=== PATIENT | male | born 1955 | race Caucasian/White ===

== ENCOUNTER → 2020-09-14 09:58 | Outpatient (CLI) | payer MEDICARE, SELFPAY ==
--- NOTE | 2020-09-14 10:06 | XR_ITS ---
PROCEDURE: XR KNEE RT 3V CLINICAL INDICATION: JANELLE KNEE PAIN COMPARISON: No exams were available for comparison FINDINGS: No fracture or dislocation. No lytic or blastic change. There is normal mineralization. There are tricompartmental osteoarthritic changes which are mild in nature. Small enthesophyte is present at the superior and inferior aspect of the patella. Other findings:None. IMPRESSION: Osteoarthritic changes Dictated by: Tesfaye Worley MD 09/14/2020 15:17 Tesfaye Worley MD in [place] 09/14/2020 15:17
--- NOTE | 2020-09-14 10:06 | XR_ITS ---
PROCEDURE: XR KNEE LT 3V CLINICAL INDICATION: JANELLE KNEE PAIN COMPARISON: No exams were available for comparison FINDINGS: No fracture or dislocation. No lytic or blastic change. There is normal mineralization. There are mild osteoarthritic changes involving all 3 compartments greatest at the medial compartment and patellofemoral joint. Patellar enthesophytes are noted. Other findings:None. IMPRESSION: Osteoarthritis Dictated by: Tesfaye Worley MD 09/14/2020 15:18 Tesfaye Worley MD in [place] 09/14/2020 15:18
--- NOTE | 2020-09-14 10:07 | XR_ITS ---
PROCEDURE: XR HAND RT MIN 3V CLINICAL INDICATION: RT HAND PAIN COMPARISON: No exams were available for comparison FINDINGS: No fracture or dislocation. No lytic or blastic change. There is normal mineralization. Multi joint osteoarthritic changes are present including the interphalangeal joint of the thumb, metacarpophalangeal joints of digits 2 and 3, the PIP digits 2 and 5, the DIP digits 234 in 5. Prominent osteophyte formation is present at the DIP of 2nd and 3rd digits. Subchondral cystic changes are present at the head of the 3rd metacarpal and at the proximal aspect of the proximal phalanx of the 2nd digit. Other findings:None. IMPRESSION: Osteoarthritis Dictated by: Tesfaye Worley MD 09/14/2020 15:14 Tesfaye Worley MD in [place] 09/14/2020 15:14
--- NOTE | 2020-09-14 10:07 | XR_ITS ---
PROCEDURE: XR HAND LT MIN 3V CLINICAL INDICATION: LT HAND PAIN COMPARISON: No exams were available for comparison FINDINGS: Multilevel osteoarthritic changes are present at the metacarpal phalangeal joint of digits 1 and 3, interphalangeal joint of the thumb, PIP joint of the 3rd 4th and 5th digits, the DIP joints of digits 234 and 5. Subchondral cystic changes are present involving the head of the 3rd metacarpal. Prominent osteophytes are present at the DIP of the 2nd digit. No acute fracture or dislocation evident. No lytic or blastic change. IMPRESSION: Osteoarthritis as described above. Dictated by: Tesfaye Worley MD 09/14/2020 15:16 Tesfaye Worley MD in [place] 09/14/2020 15:16
== END ==
PROVIDERS: PCP Family Medicine; Visit Provider Family Medicine
DX: M79.642 Pain in left hand (principal); M79.641 Pain in right hand; M25.561 Pain in right knee; M25.562 Pain in left knee
CPT/HCPCS: 73130; 73562

== ENCOUNTER → 2021-04-22 08:36 | Outpatient (CLI) | payer MEDICARE, SELFPAY ==
--- NOTE | 2021-04-22 08:44 | XR_ITS ---
PROCEDURE: XR FOOT WT BEARING LT 3V CLINICAL INDICATION: Pain COMPARISON: No exams were available for comparison FINDINGS: There are moderate osteoarthritic changes at the 1st MTP joint with bony hypertrophy. Osteoarthritis also noted at the talonavicular and navicular cuneiform joint as well as the tarsal metatarsal junction. Borderline pes planus. Osteoarthritis at the ankle. Small calcaneal spur and Achilles enthesophyte. IMPRESSION: Osteoarthritic changes with borderline pes planus Dictated by: Tesfaye Worley MD 04/22/2021 10:23 Tesfaye Worley MD in [place] 04/22/2021 10:23
--- NOTE | 2021-04-22 08:44 | XR_ITS ---
PROCEDURE: XR FOOT WT BEARING RT 3V CLINICAL INDICATION: pain COMPARISON: No exams were available for comparison FINDINGS: No fracture or dislocation. No lytic or blastic change. There is normal mineralization. Osteoarthritic changes are present at the 1st MTP, tarsal metatarsal junction, and navicular cuneiform region. There is borderline pes planus. Other findings:Prominent calcaneal spur and small Achilles enthesophyte noted. IMPRESSION: Osteoarthritic changes as described above Dictated by: Tesfaye Worley MD 04/22/2021 10:02 Tesfaye Worley MD in [place] 04/22/2021 10:02
== END ==
PROVIDERS: PCP Family Medicine; Visit Provider Nurse Practitioner
DX: M79.672 Pain in left foot (principal); M79.671 Pain in right foot
CPT/HCPCS: 73630

== ENCOUNTER → 2021-11-12 13:46 | Outpatient (CLI) | payer MEDICARE, SELFPAY ==
--- NOTE | 2021-11-12 13:50 | XR_ITS ---
FINAL REPORT CLINICAL HISTORY: knee pain FINDINGS: 4 views of the right knee were obtained. There is no acute fracture or dislocation. There is mild to moderate narrowing of the medial compartment joint space. There are small osteophytes along the undersurface of the patella. A small joint effusion is present. IMPRESSION: [id number]-pm-hsgnylna osteoarthritis. Reviewed, Interpreted and Dictated by Jesús Clarke MD Transcribed by Tanner Cueto Authenticated by Jesús Clarke MD on 11/12/2021 02:50:58 PM [facility]
--- NOTE | 2021-11-12 13:50 | XR_ITS ---
FINAL REPORT CLINICAL HISTORY: knee pain FINDINGS: 4 views of the left knee were obtained. There is no acute fracture or dislocation. There is moderate narrowing of the medial compartment joint space with subchondral sclerosis. There is varus angulation. There are osteophytes along the undersurface of the patella. A small joint effusion is present. IMPRESSION: Moderate osteoarthritis. Reviewed, Interpreted and Dictated by Jesús Clarke MD Transcribed by Tanner Cueto Authenticated by Jesús Clarke MD on 11/12/2021 02:51:12 PM [facility]
== END ==
PROVIDERS: PCP Family Medicine; Visit Provider Orthopaedic Surgery
DX: M25.561 Pain in right knee (principal); M25.562 Pain in left knee
CPT/HCPCS: 73564

== ENCOUNTER 2021-11-12 15:02 | Outpatient (RCR) | payer MEDICARE, SELFPAY | END 2021-11-12 16:00 | disposition home or self-care (01) | LOC: PT 15:02 | PROVIDERS: Visit Provider Orthopaedic Surgery | DX: M17.0 Bilateral primary osteoarthritis of knee (principal) | CPT/HCPCS: 97760 ==

== ENCOUNTER 2022-08-08 11:50 | Emergency (ER) | payer MEDICARE, SELFPAY ==
[2022-08-08 11:51] VITALS: BP 124/85; PULSE 87; RESP 19; TEMP 37; O2SAT 98; BMI 359.0
--- NOTE | 2022-08-08 13:30 | EXP.UTC ---
Discharge Plan Disposition Patient Disposition: Home, Self-Care Condition: Good Prescriptions Prescriptions: New azithromycin [Zithromax Z-Toney] 250 mg tablet See Rx Instructions .ROUTE .COMPLEX 5 Days Qty: 6 0RF Rx Instructions: For 250 mg dose pack: take 500 mg today (day 1), then 250 mg for 4 days (days 2-5) benzonatate 100 mg capsule 100 mg PO TID PRN (Reason: cough) Qty: 30 0RF methylprednisolone [Medrol (Toney)] 4 mg tablets,dose pack See Rx Instructions .Route .COMPLEX 6 Days Qty: 21 0RF Rx Instructions: taper pack; No Action tramadol 50 mg tablet 50 mg PO DAILY pravastatin 20 mg tablet 20 mg PO DAILY celecoxib 50 mg capsule 50 mg PO BID lisinopril 20 mg tablet 20 mg PO DAILY Referrals Follow up/Referrals: Gareth Garay MD [Primary Care Provider] - See instructions Activity Restrictions/Add. Instructions Additional Instructions/Restrictions: *Monitor Temp, Over the counter Motrin or Tylenol as directed/as needed Tylenol every 4 hours and Motrin every 6 hours (as long as your family doctor has told you that you can take it) for fever or pain. and straight to ER if unable to lower temp less than 101.0 after medication given *Warm salt water gargles may help to soothe the throat *Throat Lozenges? *Warm fluids like tea with honey may help to soothe the throat? *Sleep elevated *Humidifier/Vaporizer Your throat swab was sent for culture. Those results are typically sent to your primary care. Be sure to follow up in 2-3 days with your family doctor/primary care physician if no improvement so they can review those result and treat if necessary. If you don?t have a primary care doctor, I recommend you get one but in the mean time, you will have to return to a walk in clinic Follow up IMMEDIATELY for new or worsening symptoms or no Noticeable improvement over the next 48-72 hours. 911 for difficulty breathing or swallowing You were tested for today for COVID19 your test result should be back in the next 24-48 hours, you may check your results on the [facility] Clinical Impressions Clinical Impression: Sinusitis, Bronchitis Instructions Patient Instructions: DI for Sinusitis, Sinusitis, Acute Bronchitis Discharge ED Provider: Nay Rai [facility] [place] [facility] [place] General Stated complaint: congestion sore throat Time Seen by Provider: 08/08/22 13:30 History of Present Illness Provider Complaint: Patient states that he has been having sore throat, sinus congestion and drainage in the back of his throat and burning like in his chest when he would cough States that today he was still feeling bad so he came in to get checked out Related Data Home Medications Medication Instructions Recorded Confirmed celecoxib 50 mg capsule 50 mg PO BID 04/22/21 06/22/22 lisinopril 20 mg tablet 20 mg PO DAILY 04/22/21 06/22/22 pravastatin 20 mg tablet 20 mg PO DAILY 04/22/21 06/22/22 tramadol 50 mg tablet 50 mg PO DAILY 04/22/21 06/22/22 Previous Rx's Medication Instructions Recorded azithromycin 250 mg tablet See Rx Instructions PO .COMPLEX 5 08/08/22 (Zithromax Z-Toney) days #6 tabs benzonatate 100 mg capsule 100 mg PO TID PRN cough #30 caps 08/08/22 methylprednisolone 4 mg tablets in See Rx Instructions .Route 08/08/22 a dose pack (Medrol (Toney)) .COMPLEX 6 days #21 tabs Allergies Allergy/AdvReac Type Severity Reaction Status Date / Time No Known Drug Allergies Allergy Verified 06/22/22 14:33 NO KNOWN ALLERGIES Allergy Uncoded 06/22/22 14:33 [facility] Medical History Arthritis Hyperlipidemia Hypertension Surgical History H/O rotator cuff surgery History of colonoscopy Family History Other Cancer Heart attack Stroke Social History (Reviewed
[2022-08-08 13:41] LABS: UTC Influenza A Antigen Negative (Negative); UTC Influenza B Antigen Negative (Negative); UTC Strep Screen (Rapid) Negative (Negative)
[2022-08-08 14:06] VITALS: BP 124/85; PULSE 87; RESP 19; TEMP 37; O2SAT 98
== END 2022-08-08 14:06 | disposition home or self-care (01) ==
PROVIDERS: Emergency Provider Nurse Practitioner; PCP Family Medicine
DX: U07.1 COVID-19 (principal); I10 Essential (primary) hypertension; R05.9 Cough, unspecified; J32.9 Chronic sinusitis, unspecified; Z79.1 Long term (current) use of non-steroidal anti-inflammatories (NSAID); Z79.899 Other long term (current) drug therapy; Z82.49 Family history of ischemic heart disease and other diseases of the circulatory system; Z80.9 Family history of malignant neoplasm, unspecified
CPT/HCPCS: 87804; 87880; C9803; U0003; U0005

== ENCOUNTER → 2023-03-22 09:41 | Outpatient (CLI) | payer MEDICARE, SELFPAY ==
--- NOTE | 2023-03-22 09:45 | XR_ITS ---
FINAL REPORT CLINICAL HISTORY: rt knee pain COMPARISON: 11/12/2021 FINDINGS: RIGHT KNEE 3 views of the right knee were obtained. There is no acute fracture or dislocation. There has been further progression of severe joint space narrowing within the medial compartment with new subchondral sclerosis. Mild degenerative changes of the lateral compartment and patellofemoral joint. Soft tissues are unremarkable. IMPRESSION: Worsening of severe degenerative change medial compartment. Reviewed, Interpreted and Dictated by Abdelrahman Ogden MD Transcribed by Rayna Mason Authenticated and [facility]
== END ==
PROVIDERS: PCP Family Medicine; Visit Provider Orthopaedic Surgery
DX: M17.11 Unilateral primary osteoarthritis, right knee (principal)
CPT/HCPCS: 73562

== ENCOUNTER → 2023-03-22 10:56 | Outpatient (CLI) | payer MEDICARE, SELFPAY ==
--- NOTE | 2023-03-22 11:06 | ECG_ITS ---
APPROVED REPORT Exam: Resting ECG HR:91 bpm ECG Measurements Heart Rate 91 AXES SD 190 P 36 QRSd 95 QRS -6 QT 331 T 3 QTc 380 Conclusion SINUS RHYTHM NORMAL ECG UNCONFIRMED REPORT Electronically signed by : Nicanor Atkins MD 03/23/2023 09:27:43
--- NOTE | 2023-03-22 11:10 | XR_ITS ---
FINAL REPORT CLINICAL HISTORY: hypertension COMPARISON: None FINDINGS: There is no evidence of effusion or other pleural disease. The mediastinum has a normal appearance. The cardiac silhouette is unremarkable. IMPRESSION: Unremarkable chest exam. Reviewed, Interpreted and Dictated by Abdelrahman Ogden MD Transcribed by Rayna Mason Authenticated and [facility]
== END ==
PROVIDERS: PCP Family Medicine; Visit Provider Orthopaedic Surgery
DX: M17.11 Unilateral primary osteoarthritis, right knee (principal); Z01.818 Encounter for other preprocedural examination
CPT/HCPCS: 71046; 73562; 93005

== ENCOUNTER 2023-03-28 10:59 | Observation (INO) | payer MEDICARE, SELFPAY ==
[2023-03-27 12:30] VITALS: BP 132/71; PULSE 81; RESP 17; TEMP 37; O2SAT 97
--- NOTE | 2023-03-27 13:14 | SW/DCPLANNER ---
Addendum entered by Gloria Correa 03/27/23 13:58: Patient is scheduled for outpatient PT (if needed) for Saturday 03/31 at 9:00AM. Original Note: I called and spoke with this patient regarding plans after knee surgery tomorrow. Patient stated that he resides at home with his and plans to return back home after hospital admission. Patient is agreeable to home health services or outpatient therapy. I will follow up with patient after surgery tomorrow.
[2023-03-28] VITALS (24 sets, daily range): BP systolic 98–151; BP diastolic 52–87; PULSE 78–97; RESP 14–20; TEMP 36.2–43; O2SAT 90–98; BMI 30.1
[2023-03-28 06:26] LABS: Coronavirus 19, PCR Not Detected (NotDetected); Influenza A, PCR Not Detected (NotDetected); Influenza B, PCR Not Detected (NotDetected)
[2023-03-28 07:02] LABS: Basophils # 0.1 K/mm3 (0-0.2); Basophils % 1.1 % (0.1-2.0); Eosinophils # 0.2 K/mm3 (0.0-0.4); Hematocrit 47.7 % (42.0-52.0); Hemoglobin 15.4 g/dL (14.1-18.0); Lymphocytes # 2.3 K/mm3 (0.7-4.5); Lymphocytes % 29.2 % (10-50); Mean Corpuscular HGB Conc 32.3 g/dL (31.8-35.4); Mean Corpuscular Hemoglobin 30.2 pg (27.0-31.2); Mean Corpuscular Volume 93.5 fl (80-94); Mean Platelet Volume 7.8 fl (7.4-10.4); Monocytes # 0.5 K/mm3 (0.1-1.0); Monocytes % 6.3 % (1.7-9.3); Neutrophils # 4.8 K/mm3 (1.8-7.8); Neutrophils % 60.4 % (37.0-80.0); Platelet Count 316 K/mm3 (142-424); Red Cell Distribution Width 13.5 % (11.5-17.5)
[2023-03-28 07:04] LABS: Chloride 104 mmol/L (98-107); Potassium 4.5 mmoL/L (3.5-5.1); Sodium 141 mmol/L (136-145)
[2023-03-28 07:06] LABS: Blood Urea Nitrogen 24 mg/dl (9-20); Creatinine Clearance Estimated 87 mL/min (50-200); Estimated Glomerular Filt Rate 67 ml/min (>60); GFR (African American) 81 ML/MIN (>60)
[2023-03-28 07:07] LABS: Alanine Aminotransferase 41 U/L (12-78); Albumin Level 4.3 g/dl (3.5-5.0); Albumin/Globulin Ratio 1.3 (1.1-1.8); Alkaline Phosphatase 77 U/L (38-126); Anion Gap 13.5 mEq/L (5-15); Aspartate Amino Transferase 48 U/L (17-59); Bilirubin,Total 0.7 mg/dl (0.2-1.3); Calcium 9.1 mg/dl (8.4-10.2); Carbon Dioxide 28 mmol/L (22.0-30.0); Globulin 3.3 g/dL (1.3-3.2); Glucose 112 mg/dl (74-100); Total Protein,Serum 7.6 g/dl (6.3-8.2)
--- NOTE | 2023-03-28 07:10 | EXP.ANES.CKL ---
[facility] Disclaimer: The information contained in this section may have been updated after the patient was seen, as this information can be updated by other users. Medical History Arthritis Hyperlipidemia Hypertension Surgical History (Updated 03/28/23 @ 06:16 by Meseret Tena RN) H/O rotator cuff surgery History of colonoscopy Hx of umbilical hernia repair Family History Other Cancer Heart attack Stroke Social History (Updated 03/28/23 @ 06:18 by Meseret Tena RN) Smoking Status: Never smoker alcohol intake: never substance use type: former substance user current occupational status: employed Travel in the last 8 weeks: Inside the [place] household members: spouse housing: house marital status: education level: high school service: No caffeine: Yes special ray needs: No do you feel safe at home: Yes victim of physical abuse: No victim of emotional abuse: No victim of sexual abuse: No would you like helpful sources: No [facility] Anesthesia Checklist Patient Identification Patient Identification: Arm Band and Family Structural Data Admitted From: Home Planned Operative Procedure/s: Right total knee Consent for Planned Operative Procedure(s) Verified: Yes Verified Documents: Surgical Consent and History and Physical NPO Status Verified Time NPO: 00:00 Additional verifications Patient : No Anesthesia Reactions: No Hx Blood Transfusions: No Blood Transfusion Reaction: No Cephalosporin Allergy: No Previous Colonoscopy: Yes Airway Assessment C-Spine Mobility Assessed: Yes TMJ Mobility Assessed: Yes Dentition: Good Dentition Neurological Assessment Level of Consciousness: Awake, Alert, Appropriate and Follows Commands Hx Seizures: No Numbness or tingling in extremities: No Anesthesia Plan Anesthesia Risk discussed: Yes ASA Class: II Anesthesia Type: Spinal Preoperative Comments Pre-Operative Comments: Hypertension. Hepatitis at age 5. Kidney stones 5 years ago.
[2023-03-28 07:42] LABS: Hemoglobin A1C 5.7 % (4.0-6.0)
[2023-03-28 08:17] LABS: Prostate Specific Ag Screen 2.9 ng/ml (0.0-4.0)
--- NOTE | 2023-03-28 09:48 | EXP.OP.NOTE ---
Date of procedure: 03/28/23 Pre-op Diagnosis:: Right knee osteoarthritis Post-op Diagnosis:: Right knee osteoarthritis Procedure performed:: Right total knee arthroplasty Surgeon:: Jd Kimball MD SHOP MECHANIC HELPER:: Damien Haile Anesthesia: regional, local and spinal Estimated blood loss (mL): 5 Clinical Note:: Toy is a very pleasant 67-year-old male with activity limiting right knee pain secondary to osteoarthritis. X-rays revealed severe tricompartmental degenerative changes in a varus knee with complete loss of the medial joint space. He takes celecoxib and tramadol for his knee pain. He has failed conservative treatment measures including cortisone and viscosupplementation injections. We discussed all the risks, benefits and alternatives to right total knee arthroplasty. He agreed to proceed and surgical consent form was signed. Operative findings:: Right knee severe tricompartmental degenerative changes w varus deformity Operative note:: He was seen in the preoperative holding area. The right knee was marked to confirm the correct operative site. He was seen by anesthesia. He received Ancef 2 g IV prophylactic antibiotics within 1 hour of incision time. He also received 1 g of TXA just prior to the incision and as we are closing to help minimize bleeding. He was brought back to the OR. Spinal was performed without difficulty. He was placed in supine position all his bony prominences were well-padded. A bump was placed underneath the right hip. Nonsterile tourniquet was applied to the right thigh. Right lower extremity was prepped and draped in the usual sterile fashion. Timeout performed to confirm right total knee arthroplasty on patient Toy Miguel. The right lower extremity was exsanguinated with an Esmarch. Tourniquet was inflated to 300 mmHg. With the knee flexed a midline incision was made with a 10 blade scalpel. Adequate hemostasis maintained with Bovie electrocautery. Full-thickness medial and lateral flaps were elevated. We then made a medial parapatellar arthrotomy. The patella was everted. Patellar fat pad and anterior femoral fat pads were excised. Marginal osteophytes were removed. Medial release was performed using Bovie electrocautery. Whitesides line was marked. Z retractors placed medially and laterally. The distal femur was then drilled and intramedullary distal femoral cutting guide was pinned in place set at a 5 degree valgus cut for a 1 cm cut. This cut was made with the oscillating saw. The femur was then sized to a size 5 set at 3 degrees of external rotation. The 4-in-1 cutting guide was pinned in place. The anterior and posterior cuts were made as were the chamfer cuts. We then turned our attention to the tibia. The tibia was subluxed anteriorly and a PCL retractor was placed as were medial and lateral Hohmann retractors. Using the extramedullary tibial cutting guide set at a 3 degree posterior slope this was pinned in place to remove 5 mm of bone from the low medial side and a centimeter from the high lateral side. This cut was made with oscillating saw. Medial and lateral menisci were excised as were posterior osteophytes. Flexion and extension gaps were checked and with a 10 mm block we achieved full extension and flexion with excellent alignment. The tibia was sized to a size 4 tibial tray centered off the medial third of the tibial tubercle. The tray was pinned in place. We impacted the tibial punch. We then trialed with a size 5 femur. We made the box cut with the reamer and punch. Leaving the size [address] along with a 10 mm poly and the 4 tibial tray we achieved full extension and flexion with excellent alignment and stable throughout. We then turned our attention to the patella. Patella was sized to 24 mm in thickness. We made a 9 mm patellar cut with the reciprocal saw. Drill holes were made with the guide and then a 32 trial button was placed. With the trial button in
--- NOTE | 2023-03-28 09:59 | P.PNANES_ITS ---
[facility] Anesthesia Record Part I Anesthesia Record I Intake, IV Amount: 2,200 Estimated blood loss (mL): 40 Urine output (mL): 0 Blood Products used (#): none Blood Pressure: 111/55 SaO2: 95 Pulse Rate: 85 Respiratory Rate: 16 Temperature: 97.4 F Patient is:: Drowsy and Stable Stable to PACU at:: 09:53
--- NOTE | 2023-03-28 10:14 | XR_ITS ---
FINAL REPORT CLINICAL HISTORY: s/p right TKA COMPARISON: March 22, 2023 FINDINGS: 2 views of the right knee were obtained. There has been total knee arthroplasty. Hardware appears intact. There is soft tissue air. IMPRESSION: Total knee arthroplasty without evidence of hardware complication. Reviewed, Interpreted and Dictated by Anton Navarro III, MD Transcribed by Tanner Cueto Authenticated and [facility]
--- NOTE | 2023-03-28 11:10 | PC.NURSE ---
arrived to floor by bed
--- NOTE | 2023-03-28 13:07 | EXP.ACUTE.PN ---
Subjective *Date: 03/28/23 *Time: 13:10 Interval history: Called by Dr. Kimball to see patient after routine knee replacement this morning. Patient feels well and is waiting to work with PT. Medical Exam Vital signs and Labs for Last 24 Hours: Vital Signs Temp Pulse Pulse Resp BP BP Pulse Ox 03/28/23 11:03 88 17 119/64 97 03/28/23 10:53 82 16 128/78 95 03/28/23 10:43 79 16 115/57 L 95 03/28/23 10:33 78 16 118/59 L 97 03/28/23 10:23 81 17 108/58 L 95 03/28/23 10:13 88 19 125/52 L 95 03/28/23 10:03 83 19 98/57 L 95 03/28/23 09:53 97.4 F L 85 16 111/55 L 90 L 03/28/23 08:18 14 03/28/23 06:30 97.2 F L 90 18 151/85 H 96 03/28/23 10:01 97.4 F L 85 16 111/55 L Intake and Output 03/27/23 03/28/23 03/28/23 23:59 07:59 15:59 Intake Total 2200 / 2200 Balance 2200 / 2200 Intake: Intake, Total IV Amount 2200 / 2200 Other: Weight 210 lb Patient Weight 03/28/23 23:59 Weight 210 lb Laboratory Results - last 24 hr 03/28/23 06:20: SARS-CoV-2 (PCR) Not detected, Influenza A Untype (PCR) Not detected, Influenza Type B (PCR) Not detected 03/28/23 06:45: WBC 8.0, RBC 5.10, Hgb 15.4, Hct 47.7, MCV 93.5, MCH 30.2, MCHC 32.3, RDW 13.5, Plt Count 316, MPV 7.8, Neut % (Auto) 60.4, Lymph % (Auto) 29.2, Gregory % (Auto) 6.3, Eos % (Auto) 3.0, Baso % (Auto) 1.1, Neut # (Auto) 4.8, Lymph # (Auto) 2.3, Gregory # (Auto) 0.5, Eos # (Auto) 0.2, Baso # (Auto) 0.1 03/28/23 06:45: Sodium 141, Potassium 4.5, Chloride 104, Carbon Dioxide 28, Anion Gap 13.5, BUN 24 H, Creatinine 1.10, Estimated Creat Clear 87, Estimated GFR 67, Est GFR ( Amer) 81, Glucose 112 H, Calcium 9.1, Total Bilirubin 0.7, AST 48, ALT 41, Alkaline Phosphatase 77, Total Protein 7.6, Albumin 4.3, Globulin 3.3 H, Albumin/Globulin Ratio 1.3 03/28/23 06:45: Hemoglobin A1c 5.7 03/28/23 06:45: PSA Screen 2.9 I & O for Labs for Last 24 Hours: Intake & Output 03/25/23 03/26/23 03/27/23 03/28/23 23:59 23:59 23:59 23:59 Intake Total 0 / 2200 Balance 2200 / 2200 Weight 210 lb Constitutional: Present no acute distress Respiratory: Present normal respiratory effort Cardiac: Present Reg Rate and Rhythm Assessment and Plan *Assessment and plan (1) Arthritis of knee, right: Status: Acute Category: Medical Code(s): M17.11 - Unilateral primary osteoarthritis, right knee (2) Status post total right knee replacement: Status: Acute Category: Surgical Code(s): Z96.651 - Presence of right artificial knee joint Plan PT eval today, probable discharge home tomorrow.
--- NOTE | 2023-03-28 14:19 | HMH.PTEV ---
Physical Therapy Evaluation Rehab PT IP Evaluation Start: 03/28/23 10:07 Freq: ONCE Status: Active Protocol: Document 03/28/23 14:13 PHORMERCEDES (Rec: 03/28/23 14:19 PHORNE [id number]) Subjective/History History History 67 yowm adm to [facility] for R TKA. He reports he lives with spouse, 4-5 steps to enter the home, and he is generally independent with all mobility without AD prior to adm. Subjective Subjective Currently R LE from mid-thigh distally remains numb after surgery due to epidural. Rehab PT IP Eval Objective Appearance Patient Behavior Appropriate Patient Orientation Person,Place,Time Difficulty following instructions none Speech Pattern Clear Ambulation Patient Able to Ambulate Yes Ambulation Observation IP General Gait Pattern Observation Antalgic Gait,Shuffling Step Ambulation Distance (feet) 4 Ambulation Assistive Device Rolling Walker Ambulation Ability Minimal x 1 (25% assist) Balance Ability to Arise Able, uses arms to help Sitting Balance Steady, safe Standing Balance Steady, wide stance Dynamic Sitting Balance Ability Good Dynamic Standing Balance Ability Fair Transfers Bed Transfer Ability Minimal x 1 (25% assist) Chair Transfer Ability Minimal x 1 (25% assist) Sit to Stand Bed Transfer Ability Minimal x 1 (25% assist) Sit to Stand Chair Transfer Ability Minimal x 1 (25% assist) Rehab PT IP prob,goals,plan Problems Date of Evaluation: 03/28/23 PT IP Problems Bed Mobility,Transfers,Gait Rehab Potential Rehab Potential Good Plan PT Intervention Plan Bed Mobility,Transfers,Gait, Therapeutic Exercise PT Plan Frequency BID Duration LOS Discharge Goals Bed Transfer Ability Contact Guard/Hand Hold Sit to Stand Chair Transfer Ability Contact Guard/Hand Hold Ambulation Assistive Device Rolling Walker Ambulation Distance (feet) 20 Discharge Plan PT Discharge Plan Pt is currently appropriate to return home once medically stable for d/c with family support. G -code Required No Eval Complexity Eval Charge Codes 31285 - High Complexity PHYSICIAN CERTIFICATION: I certify the specified therapy services for Toy Miguel are required, authorized, and reviewed every 30 days.
--- NOTE | 2023-03-28 15:01 | HMH.OTEV ---
OT Inpatient Evaluation Rehab OT IP Evaluation Start: 03/28/23 10:07 Freq: ONCE Status: Active Protocol: Document 03/28/23 14:42 SIDNEYHAYLEE (Rec: 03/28/23 15:00 ALOKKRISHAN [id number]) Rehab OT IP Assessment Subjective History Toy is a very pleasant 67- year-old male with activity limiting right knee pain secondary to osteoarthritis. X-rays revealed severe tricompartmental degenerative changes in a varus knee with complete loss of the medial joint space. He takes celecoxib and tramadol for his knee pain. He has failed conservative treatment measures including cortisone and viscosupplementation injections. We discussed all the risks, benefits and alternatives to right total knee arthroplasty. He agreed to proceed and surgical consent form was signed. Procedure performed:: Right total knee arthroplasty Patient lives with in 2 story home with 2-3 MELIA. Patient independent with ADLs and fx'l mobility prior to surgery. Patient used no AE/ devices to complete fx'l tasks . is in good condition to care for patient if needed. Subjective I can get up. Instructed Patient on proper hand and foot placement to complete supine->sit @ EOB requiring Min A. Patient demonstrated good dynamic sitting balance @ EOB. Instructed Patient on proper hand and foot placement to complete SPT to recliner with usage of RW with Min A. Left Patient sitting upright in chair with needs met. Patient required Mod/Max A for UB drsg and TD for LB drsg. Objective Patient Orientation Person,Place,Name,Year Upper Extremity Gross ROM
[2023-03-29 04:00] VITALS: BP 119/59; PULSE 80; RESP 18; TEMP 37.8; O2SAT 95; BMI 30.3
--- NOTE | 2023-03-29 05:11 | PC.NURSE ---
Pt has been in pain most of the night, has been controlled with medication, See Mar. Patient has been up with 1x assist to bathroom with walker. no other issues stated. Dressing clean dry and intact
[2023-03-29 06:23] LABS: Basophils % 0.4 % (0.1-2.0); Eosinophils # 0.1 K/mm3 (0.0-0.4); Eosinophils % 0.7 % (0.1-12.0); Hematocrit 38.9 % (42.0-52.0); Lymphocytes # 2.2 K/mm3 (0.7-4.5); Lymphocytes % 21.1 % (10-50); Mean Corpuscular HGB Conc 31.4 g/dL (31.8-35.4); Mean Corpuscular Volume 95.7 fl (80-94); Mean Platelet Volume 7.5 fl (7.4-10.4); Monocytes # 0.8 K/mm3 (0.1-1.0); Monocytes % 7.6 % (1.7-9.3); Neutrophils # 7.2 K/mm3 (1.8-7.8); Neutrophils % 70.2 % (37.0-80.0); Platelet Count 268 K/mm3 (142-424); Red Blood Count 4.07 M/mm3 (4.60-6.20); Red Cell Distribution Width 13.8 % (11.5-17.5); White Blood Count 10.2 K/mm3 (4.8-10.8)
[2023-03-29 06:36] LABS: Anion Gap 13.9 mEq/L (5-15); Blood Urea Nitrogen 25 mg/dl (9-20); Calcium 7.9 mg/dl (8.4-10.2); Carbon Dioxide 25 mmol/L (22.0-30.0); Chloride 105 mmol/L (98-107); Creatinine Clearance Estimated 80 mL/min (50-200); Estimated Glomerular Filt Rate 60 ml/min (>60); GFR (African American) 73 ML/MIN (>60); Glucose 108 mg/dl (74-100); Potassium 3.9 mmoL/L (3.5-5.1); Sodium 140 mmol/L (136-145)
[2023-03-29 06:50] LABS: Hemoglobin 12.3 g/dL (14.1-18.0)
--- NOTE | 2023-03-29 07:22 | P.PNANES_ITS ---
[facility] Anesthesia Record Part II Anesthesia Record Part II Discharge Time: 11:03 Destination: Medical Surgical Department PACU nurse assessment reviewed?: Yes Patient Condition:: Good Anesthesia Complications:: None Swallowing reflex intact?: Yes Cyanosis?: No Blood Pressure: 119/64 Pulse Rate: 88 Temperature: 97.4 F Mental Status: Alert & Oriented Pain level:: 0 Nausea and/or vomitting:: None Intake, IV Amount: 0
[2023-03-29 07:23] VITALS: BP 119/64; PULSE 88; TEMP 36.3
--- NOTE | 2023-03-29 07:32 | EXP.ACUTE.PN ---
Subjective *Date: 03/29/23 *Time: 08:02 Interval history: States he slept maybe 2 hours during the night. He does have postoperative right knee pain. He feels a little jittery this morning. He was able to eat all of his breakfast. He is voiding QS. Patient was seen by PT and OT yesterday. He did walk with rolling walker in the room with PT in attendance. Patient did have a low-grade fever this morning of 100.3. CBC with a white blood cell count of 10,200. IV fluids continue at 75 an hour. Medical Exam Vital signs and Labs for Last 24 Hours: Vital Signs Temp Pulse Pulse Resp BP BP Pulse Ox 03/29/23 04:00 100.1 F H 80 18 119/59 L 95 03/28/23 23:51 99.1 F 91 H 20 146/75 H 96 03/28/23 20:00 99.2 F 97 H 18 149/65 H 96 03/28/23 16:00 98.4 F 92 H 18 124/68 95 03/28/23 15:01 98.4 F 83 17 129/87 97 03/28/23 12:00 98.2 F 82 16 127/72 97 03/28/23 14:00 98.5 F 84 17 129/76 03/28/23 13:00 98.6 F 87 16 131/75 97 03/28/23 10:07 98.7 F 84 16 133/70 03/28/23 11:45 98.6 F 82 16 130/69 97 03/28/23 11:30 98.6 F 82 16 130/68 97 03/28/23 11:15 98.6 F 81 16 126/67 98 03/28/23 11:00 98.6 F 80 16 123/68 97 03/28/23 11:03 88 17 119/64 97 03/28/23 10:53 82 16 128/78 95 03/28/23 10:43 79 16 115/57 L 95 03/28/23 10:33 78 16 118/59 L 97 03/28/23 10:23 81 17 108/58 L 95 03/28/23 10:13 88 19 125/52 L 95 03/28/23 10:03 83 19 98/57 L 95 03/28/23 09:53 97.4 F L 85 16 111/55 L 90 L 06/13/23 08:18 14 03/28/23 10:01 97.4 F L 85 16 111/55 L Intake and Output 03/28/23 03/29/23 03/29/23 19:59 03:59 11:59 Intake Total 1040 / 1040 0 / 1040 Output Total 0 / 0 0 / 0 Balance 1040 / 1040 0 / 1040 0 / 1040 Intake: Intake, Oral Amount 840 / 840 Intake, Total IV Amount 200 / 200 0 / 200 0.9 % Sodium Chloride 1000ML 1, 200 / 200 000 ml @ 75 mls/hr IV .[id number] [facility] Rx#:[id number] Output: Output, Urine Amount 0 / 0 0 / 0 Other: Number of Unmeasured Voids 1 1 Weight 212 lb Patient Weight 03/29/23 11:59 Weight 212 lb Laboratory Results - last 24 hr 03/28/23 06:45: Hemoglobin A1c 5.7 03/28/23 06:45: PSA Screen 2.9 03/29/23 06:15: WBC 10.2 D, RBC 4.07 L, Hgb 12.3 L D, Hct 38.9 L, MCV 95.7 H, MCH 30.0, MCHC 31.4 L, RDW 13.8, Plt Count 268, MPV 7.5, Neut % (Auto) 70.2, Lymph % (Auto) 21.1, [place] % (Auto) 7.6, Eos % (Auto) 0.7, Baso % (Auto) 0.4, Neut # (Auto) 7.2, Lymph # (Auto) 2.2, [place] # (Auto) 0.8, Eos # (Auto) 0.1, Baso # (Auto) 0.0 03/29/23 06:15: Sodium 140, Potassium 3.9, Chloride 105, Carbon Dioxide 25, Anion Gap 13.9, BUN 25 H, Creatinine 1.20, Estimated Creat Clear 80, Estimated GFR 60, Est GFR ( Amer) 73, Glucose 108 H, Calcium 7.9 L I & O for Labs for Last 24 Hours: Intake & Output 03/26/23 03/27/23 03/28/23 03/29/23 11:59 11:59 11:59 11:59 Intake Total 2200 / 2200 1040 / 1040 Output Total 0 / 0 Balance 2199 / 2199 1040 / 1040 Weight 210 lb 212 lb Constitutional: Present no acute distress Comment:: Sitting up in the bed and has completed his breakfast. is at bedside. Respiratory: Present CTA bilaterally Cardiac: Present Reg Rate and Rhythm Extremities: Present normal capillary refill and edema (Minimal edema below Mc wrap.); Absent calf tenderness Comment:: Mc wrap from upper thigh to right lower leg. Neuro: Present alert and awake Assessment and Plan *Assessment and plan (1) Arthritis of knee, right: Status: Acute Category: Medical Code(s): M17.11 - Unilateral primary osteoarthritis, right knee (2) Status post total right knee replacement: Status: Acute Category: Surgical Code(s): Z96.651 - Presence of right artificial knee joint Plan Patient will possibly go home today. He will continue with rehab with follow-up with Dr. Kimball in 3 weeks
[2023-03-29 08:00] VITALS: BP 143/68; PULSE 78; RESP 18; TEMP 36.7; O2SAT 95
--- NOTE | 2023-03-29 08:02 | HMH.PHAINT1 ---
Pharmacy Intervention Comments: MEDICATION RECONCILIATION COMPLETED USING EXTERNAL FILL HISTORY FROM OUTSIDE PHARMACY AND LIST FROM RECENT OFFICE VISIT
--- NOTE | 2023-03-29 09:14 | HMH.PHAINT1 ---
Pharmacy Intervention Comments: Discharge medication counseling completed. There were no changes or additions to the patient's home meds but he was told to hold tramadol until 04/06 and not to take it concurrently with oxycodone. Patient verbalized understanding and had no questions.
--- NOTE | 2023-03-29 13:19 | CARE MANAGER ---
Met with patient this morning to discuss discharge planning. Patient states that he has BSC and walker at home. He plans to attend outpatient PT, order was faxed and eval is scheduled for Monday @ 0900.
--- NOTE | 2023-03-30 16:09 | CARE MANAGER ---
Contacted patient related to hospital discharge. He states he is doing well and has already had physical therapy. Denies questions or concerns and is aware of follow up appointment. LOUISE Diaz
--- NOTE | 2023-04-03 16:21 | EXP.DC.SUM ---
General Admission date:: 03/28/23 Discharge date: 03/29/23 HPI HPI HPI: Mr. Miguel is a 67-year-old male who has been followed by orthopedic surgeon, Dr. Witt. He has been noted to be suffering with osteoarthritis bilateral knees. He has had several injections in the fall 2021. He was also noted to be taking tramadol and Celebrex on a daily basis. He was noted to be quite active. This was affecting his quality of life. In October 2022 knee surgery was recommended to be performed in March after waiting parties had passed. On 03/28 he had a right total knee arthroplasty per Dr. WITT. He was then admitted for observation overnight. Hospital Course Hospital Course Hospital Course: Postoperatively physical therapy did see the patient of surgery. He ambulated with a rolling walker. He had the usual postoperative knee pain. The following day he was ready to be discharged. He was eating and drinking without difficulty. Again he worked with physical therapy in the a.m. and was then discharged. He was to follow-up with Dr. Witt with outpatient physical therapy in [facility]. Meds as per medication reconciliation sheet. Follow-up with Dr. Witt in 3 weeks Exam Data for Last 24 hours Vital signs and Labs for Last 24 Hours: Temp Pulse Resp BP Pulse Ox 98.0 F 78 18 143/68 H 95 03/29/23 08:00 03/29/23 08:00 03/29/23 08:00 03/29/23 08:00 03/29/23 08:00 Narrative: Medical Exam Vital signs and Labs for Last 24 Hours: Vital Signs ? Temp Pulse Pulse Resp BP BP Pulse Ox ?03/29/23 04:00 ?100.1 F H ? ?80 ?18 ? ?119/59 L ?95 ?03/28/23 23:51 ?99.1 F ? ?91 H ?20 ? ?146/75 H ?96 ?03/28/23 20:00 ?99.2 F ? ?97 H ?18 ? ?149/65 H ?96 ?03/28/23 16:00 ?98.4 F ? ?92 H ?18 ? ?124/68 ?95 ?03/28/23 15:01 ?98.4 F ? ?83 ?17 ? ?129/87 ?97 ?03/28/23 12:00 ?98.2 F ? ?82 ?16 ? ?127/72 ?97 ?03/28/23 14:00 ?98.5 F ? ?84 ?17 ? ?129/76 ? ?03/28/23 13:00 ?98.6 F ? ?87 ?16 ? ?131/75 ?97 ?03/28/23 10:07 ?98.7 F ? ?84 ?16 ? ?133/70 ? ?03/28/23 11:45 ?98.6 F ? ?82 ?16 ? ?130/69 ?97 ?03/28/23 11:30 ?98.6 F ? ?82 ?16 ? ?130/68 ?97 ?03/28/23 11:15 ?98.6 F ? ?81 ?16 ? ?126/67 ?98 ?03/28/23 11:00 ?98.6 F ? ?80 ?16 ? ?123/68 ?97 ?03/28/23 11:03 ? ? ?88 ?17 ? ?119/64 ?97 ?03/28/23 10:53 ? ? ?82 ?16 ? ?128/78 ?95 ?03/28/23 10:43 ? ? ?79 ?16 ? ?115/57 L ?95 ?03/28/23 10:33 ? ? ?78 ?16 ? ?118/59 L ?97 ?03/28/23 10:23 ? ? ?81 ?17 ? ?108/58 L ?95 ?03/28/23 10:13 ? ? ?88 ?19 ? ?125/52 L ?95 ?03/28/23 10:03 ? ? ?83 ?19 ? ?98/57 L ?95 ?03/28/23 09:53 ?97.4 F L ? ?85 ?16 ? ?111/55 L ?90 L ?03/28/23 08:18 ?14 ?03/28/23 10:01 ?97.4 F L ?85 ? ?16 ?111/55 L ? ? Intake and Output ? 03/28/23 03/29/23 03/29/23 ? 19:59 03:59 11:59 Intake Total 1040 / 1040 ? 0 / 1040 Output Total 0 / 0 0 / 0 ? Balance 1040 / 1040 0 / 1040 0 / 1040 Intake: ? Intake, Oral Amount 840 / 840 ? ? ? Intake, Total IV Amount 200 / 200 ? 0 / 200 ? ? 0.9 % Sodium Chloride 1000ML 1, 200 / 200 ? 000 ml @ 75 mls/hr IV .[id number] ? [facility] Rx#:[id number] ? ? ? Output: ? Output, Urine Amount 0 / 0 0 / 0 ? Other: ? Number of Unmeasured Voids 1 1 ? ? Weight ? ? 212 lb Patient Weight ? 03/29/23 ? 11:59 Weight 212 lb Laboratory Results - last 24 hr 03/28/23 06:45:?Hemoglobin A1c 5.7 03/28/23 06:45:?PSA Screen 2.9 03/29/23 06:15: WBC 10.2? D,?RBC 4.07 L,?Hgb 12.3 L D,?Hct 38.9 L,?MCV 95.7 H, MCH 30.0,?MCHC 31.4 L, RDW 13.8, Plt Count 268, MPV 7.5, Neut % (Auto) 70.2, Lymph % (Auto) 21.1, [place] % (Auto) 7.6, Eos % (Auto) 0.7, Baso % (Auto) 0.4, Neut # (Auto) 7.2, Lymph # (Auto) 2.2, [place] # (Auto) 0.8, Eos # (Auto) 0.1, Baso # (Auto) 0.0 03/29/23 06:15:?Sodium 140, Potassium 3.9, Chloride 105, Carbon Dioxide 25, Anion Gap 13.9,?BUN 25 H, Creatinine 1.20, Estimated Creat Clear 80, Estimated GFR 60, Est GFR ( Amer) 73,?Glucose 108 H,?Calcium 7.9 L I & O for Labs for Last 24 Hours: Intake & Output ? 03/26/23 03/27/23 03/28/23 03/29/23 ? 11:59 11:59 11:5
== END 2023-03-29 09:48 | disposition home or self-care (01) ==
LOC: 2ND 11:02
PROVIDERS: Orthopaedic Surgery; Admitting Provider Family Medicine; PCP Family Medicine; Visit Provider Family Medicine
PROC: (CPT 27447; principal; 2023-03-28 07:30)
DX: M17.11 Unilateral primary osteoarthritis, right knee (principal); I10 Essential (primary) hypertension; Z79.899 Other long term (current) drug therapy; M25.561 Pain in right knee; E78.5 Hyperlipidemia, unspecified; Z12.5 Encounter for screening for malignant neoplasm of prostate
CPT/HCPCS: 27447; G0378; G0379; 73560; 80048; 80053; 83036; 85025; 87635; 87636; 96374; 97116; 97163; 97165; 97535; G0103; C1713; C1776; C9803; J2405; U0003; U0005

== ENCOUNTER → 2023-04-19 09:14 | Outpatient (CLI) | payer MEDICARE, SELFPAY ==
--- NOTE | 2023-04-19 09:19 | XR_ITS ---
FINAL REPORT CLINICAL HISTORY: Rt knee pain FINDINGS: RIGHT KNEE SERIES Three views of the right knee were obtained. There are postoperative changes from a knee arthroplasty. There is no acute fracture or dislocation. The joint spaces are preserved. There are small soft tissue calcifications. IMPRESSION: No acute bony abnormality. Reviewed, Interpreted and Dictated by Anton Navarro III, MD Transcribed by Demetrio Alexander Authenticated and [facility]
== END ==
PROVIDERS: PCP Family Medicine; Visit Provider Orthopaedic Surgery
DX: Z96.651 Presence of right artificial knee joint (principal); M25.561 Pain in right knee
CPT/HCPCS: 73562

== ENCOUNTER 2023-04-24 11:00 | Outpatient (RCR) | payer MEDICARE, SELFPAY ==
--- NOTE | 2023-03-30 15:15 | HMH.PTOPEV ---
PT Outpatient Evaluation Rehab PT Outpatient Evaluation Start: 03/30/23 14:01 Freq: Status: Active Protocol: Document 03/30/23 14:01 PDESEROUX (Rec: 03/30/23 15:14 PDESEROUX [id number]) E-signed By Rigoberto Ramirez, PT Outpatient Therapy Subjective History Subjective History Pt. is a 67 year old male who presents to [facility] Outpatient Physical Therapy Services in [place] for the initial evaluation this date(03/30/23) w/ c/o acute and constant RLE knee post-surgical P!, edema, and weakness S/P RLE TKA on 03/28/23. Pt. reports surgery was secondary to history of osteoarthritis, planning on having the LLE replaced in the near future. Pt. RTMD(Dr. Garay) 04/06/23 or 04/07/23 , and RTMD(Dr. Kimball) 04/19/23 per pt. report. Pt. reports icing and elevation the RLE knee @ home provides some symptom relief. Pt. reports ambulating w/ rollator on the front porch a few times throughout the day. Pt. c/o of P! at 3/10 constantly that jumps up to a 9/10 w/ activity . Current medications include Tramadol, Oxycodone, Lisinopril, Pravastatin, Tamsulosin, and Chlorothiazide . PMH includes S/P BUE shldr. 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 Chief Complaint Pain,Stiff,Swelling,Gives out/ Unstable,Paresthesia,Weakness Symptom Type Ache,Sharp,Dull,Numbness, Shooting,Other Symptoms Relieved By Rest/Positioning,Ice,Brace/ Support,Prescription Meds Symptoms Aggravated By Standing,Bending/Stooping, Physical Activity,Twisting, Walking,Lifting Prior Functional Limitations None Current Functional Limitations Dressing,Driving,Sleeping, Standing,Sitting,Squatting,
--- NOTE | 2023-03-30 15:15 | HMH.PTOPEV ---
PT Outpatient Evaluation Rehab PT Outpatient Evaluation Start: 03/30/23 14:01 Freq: Status: Active Protocol: Document 03/30/23 14:01 PDESEROUX (Rec: 03/30/23 15:14 PDESEROUX [id number]) E-signed By Rigoberto Ramirez, PT Outpatient Therapy Subjective History Subjective History Pt. is a 67 year old male who presents to [facility] Outpatient Physical Therapy Services in [place] for the initial evaluation this date(03/30/23) w/ c/o acute and constant RLE knee post-surgical P!, edema, and weakness S/P RLE TKA on 03/28/23. Pt. reports surgery was secondary to history of osteoarthritis, planning on having the LLE replaced in the near future. Pt. RTMD(Dr. Garay) 04/06/23 or 04/07/23 , and RTMD(Dr. Kimball) 04/19/23 per pt. report. Pt. reports icing and elevation the RLE knee @ home provides some symptom relief. Pt. reports ambulating w/ rollator on the front porch a few times throughout the day. Pt. c/o of P! at 3/10 constantly that jumps up to a 9/10 w/ activity . Current medications include Tramadol, Oxycodone, Lisinopril, Pravastatin, Tamsulosin, and Chlorothiazide . PMH includes S/P BUE shldr. 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 Chief Complaint Pain,Stiff,Swelling,Gives out/ Unstable,Paresthesia,Weakness Symptom Type Ache,Sharp,Dull,Numbness, Shooting,Other Symptoms Relieved By Rest/Positioning,Ice,Brace/ Support,Prescription Meds Symptoms Aggravated By Standing,Bending/Stooping, Physical Activity,Twisting, Walking,Lifting Prior Functional Limitations None Current Functional Limitations Dressing,Driving,Sleeping, Standing,Sitting,Squatting,
== END 2023-06-07 16:45 | disposition home or self-care (01) ==
LOC: PT 11:00
PROVIDERS: PCP Family Medicine; Visit Provider Orthopaedic Surgery
DX: M17.11 Unilateral primary osteoarthritis, right knee (principal); Z96.651 Presence of right artificial knee joint
CPT/HCPCS: 97010; 97014; 97110; 97140; 97163; 97530; G0283

== ENCOUNTER → 2023-06-21 09:01 | Outpatient (CLI) | payer MEDICARE, SELFPAY ==
--- NOTE | 2023-06-21 09:08 | XR_ITS ---
FINAL REPORT CLINICAL HISTORY: left knee pain COMPARISON: 04/19/2023 FINDINGS: Right knee Three views were obtained. There is no acute fracture or dislocation. The patient is status post knee arthroplasty. No soft tissue abnormality is identified. IMPRESSION: No acute process. Reviewed, Interpreted and Dictated by Anton Navarro III, MD Transcribed by Danielle Dick Authenticated and [facility]
--- NOTE | 2023-06-21 09:08 | XR_ITS ---
FINAL REPORT CLINICAL HISTORY: right knee pain COMPARISON: 11/12/2021 FINDINGS: Left knee Three views were obtained. There is no acute fracture or dislocation. There are moderate degenerative changes. There is medial compartment narrowing, worse. Moderate joint effusion is identified. IMPRESSION: Worsening degenerative changes. Moderate joint effusion. Reviewed, Interpreted and Dictated by Anton Navarro III, MD Transcribed by Danielle Dick Authenticated and [facility]
== END ==
PROVIDERS: PCP Family Medicine; Visit Provider Orthopaedic Surgery
DX: M25.562 Pain in left knee (principal); M25.561 Pain in right knee
CPT/HCPCS: 73562

== ENCOUNTER → 2023-08-25 08:23 | Outpatient (CLI) | payer MEDICARE, SELFPAY ==
--- NOTE | 2023-08-25 08:50 | XR_ITS ---
FINAL REPORT CLINICAL HISTORY: Preoperative respiratory clearance for left knee replacement, hypertension FINDINGS: PA and lateral views of the chest are obtained. There is no prior exam for comparison. The cardiac and mediastinal silhouettes are within normal limits. The lungs are clear. There is no pleural effusion, pneumothorax, or acute osseous abnormality. IMPRESSION: No radiographic evidence of acute cardiac or pulmonary disease. Reviewed, Interpreted and Dictated by Ekaterina Carl MD Transcribed by Betty Garcia Authenticated and [facility]
[2023-08-25 09:09] LABS: Basophils # 0.1 K/mm3 (0-0.2); Basophils % 1.1 % (0.1-2.0); Eosinophils # 0.2 K/mm3 (0.0-0.4); Eosinophils % 3.6 % (0.1-12.0); Hematocrit 46.7 % (42.0-52.0); Lymphocytes # 2.3 K/mm3 (0.7-4.5); Mean Corpuscular HGB Conc 34.4 g/dL (31.8-35.4); Mean Corpuscular Hemoglobin 32.1 pg (27.0-31.2); Mean Corpuscular Volume 93.4 fl (80-94); Monocytes # 0.4 K/mm3 (0.1-1.0); Monocytes % 6.8 % (1.7-9.3); Neutrophils # 2.5 K/mm3 (1.8-7.8); Neutrophils % 46.5 % (37.0-80.0); Platelet Count 271 K/mm3 (142-424); Red Blood Count 4.99 M/mm3 (4.60-6.20); Red Cell Distribution Width 13.3 % (11.5-17.5); White Blood Count 5.3 K/mm3 (4.8-10.8)
[2023-08-25 10:41] LABS: Alanine Aminotransferase 28 U/L (12-78); Albumin Level 4.2 g/dl (3.5-5.0); Albumin/Globulin Ratio 1.5 (1.1-1.8); Alkaline Phosphatase 84 U/L (38-126); Anion Gap 13.1 mEq/L (5-15); Aspartate Amino Transferase 33 U/L (17-59); Bilirubin,Total 0.6 mg/dl (0.2-1.3); Blood Urea Nitrogen 18 mg/dl (9-20); Carbon Dioxide 25 mmol/L (22.0-30.0); Chloride 104 mmol/L (98-107); Estimated Glomerular Filt Rate 74 ml/min (>60); GFR (African American) 90 ML/MIN (>60); Globulin 2.8 g/dL (1.3-3.2); Glucose 108 mg/dl (74-100); Potassium 4.1 mmoL/L (3.5-5.1); Sodium 138 mmol/L (136-145)
[2023-08-25 13:31] LABS: Hemoglobin A1C 5.7 % (4.0-6.0)
== END ==
PROVIDERS: PCP Family Medicine; Visit Provider Orthopaedic Surgery
DX: M25.562 Pain in left knee (principal); Z96.652 Presence of left artificial knee joint; Z79.899 Other long term (current) drug therapy
CPT/HCPCS: 36415; 71046; 80053; 83036; 85025

== ENCOUNTER 2023-08-29 10:42 | Observation (INO) | payer MEDICARE, SELFPAY ==
--- NOTE | 2023-08-16 14:40 | SW/DCPLANNER ---
I called and spoke w/ this patient regarding TKA on 08/29/23. Patient stated that he resides at home in [place] w/ his . Patient stated that he plans to discharge home and return to outpatient PT at the [place] office w/ [facility]. Patient stated that he has all needed DME at home. I will follow up w/ this patient after his procedure.
[2023-08-25 13:02] VITALS: BMI 30.1
[2023-08-28 13:05] VITALS: BP 126/70; PULSE 84; RESP 16; TEMP 37.7; O2SAT 95
[2023-08-29] VITALS (26 sets, daily range): BP systolic 101–163; BP diastolic 53–98; PULSE 64–117; RESP 13–20; TEMP 35.6–37.9; O2SAT 90–100; BMI 29.5
--- NOTE | 2023-08-29 06:32 | ECG_ITS ---
APPROVED REPORT Exam: Resting ECG HR:86 bpm ECG Measurements Heart Rate 86 AXES VA 186 P 46 QRSd 96 QRS -1 QT 358 T 9 QTc 401 Conclusion SINUS RHYTHM NORMAL ECG UNCONFIRMED REPORT Electronically signed by : Nicanor Atkins MD 08/29/2023 20:10:06
--- NOTE | 2023-08-29 07:27 | EXP.ANES.CKL ---
[facility] Disclaimer: The information contained in this section may have been updated after the patient was seen, as this information can be updated by other users. Medical History Acquired pes planus of both feet Arthritis Arthritis of knee, right Arthritis of left knee Bone spur Calcaneal spur of both feet Chronic pain of both knees Foot pain Hyperlipidemia Hypertension Metatarsalgia of both feet Onychomycosis Primary osteoarthritis of knees, bilateral Surgical History H/O rotator cuff surgery History of colonoscopy History of knee replacement Hx of umbilical hernia repair Family History Other Cancer Heart attack Stroke Social History Smoking Status: Never smoker alcohol intake: never substance use type: former substance user current occupational status: retired Travel in the last 8 weeks: Inside the [facility] household members: spouse housing: house marital status: education level: high school service: No caffeine: Yes special ray needs: No do you feel safe at home: Yes victim of physical abuse: No victim of emotional abuse: No victim of sexual abuse: No would you like helpful sources: No [facility] Anesthesia Checklist Patient Identification Patient Identification: Verbal (Name & ) Structural Data Admitted From: Home Planned Operative Procedure/s: l tka Consent for Planned Operative Procedure(s) Verified: Yes NPO Status Verified Time NPO: 00:00 Additional verifications Anesthesia Reactions: No Hx Blood Transfusions: No Blood Transfusion Reaction: No Airway Assessment Mallampati Score:: Class II C-Spine Mobility Assessed: Yes TMJ Mobility Assessed: Yes Dentition: Good Dentition Neurological Assessment Level of Consciousness: Awake, Alert and Appropriate Anesthesia Plan Anesthesia Risk discussed: Yes Anesthesia Plan: Verified ASA Class: II Anesthesia Type: MAC w/Spinal Preoperative Comments Pre-Operative Comments: adductor canal block discussed w pt, pt agrees to proceed
--- NOTE | 2023-08-29 09:44 | EXP.OP.NOTE ---
Date of procedure: 08/29/23 Pre-op Diagnosis:: Left knee osteoarthritis Post-op Diagnosis:: Left knee osteoarthritis Procedure performed:: Left total knee arthroplasty Surgeon:: Jd Kimball MD Wardrobe Consultant(s):: None NEWS PRODUCER:: Other Anesthesia: regional, local and spinal Estimated blood loss (mL): 5 Clinical Note:: Toy is a pleasant 68-year-old male with activity limiting left knee pain secondary to osteoarthritis that is affecting his quality of life. Recovered well after a right knee replacement in March. He takes celecoxib and tramadol for his knee pain. Temporary relief with cortisone injections. No relief with Monovisc injections in October. Left knee x-rays in June revealed severe tricompartmental degenerative changes with complete loss of medial joint space and marginal osteophyte formation in a varus knee. We discussed all the risks, benefits and alternatives to left total knee arthroplasty and he agreed to proceed. Surgical consent form was signed. Operative findings:: Left knee severe tricompartmental degenerative changes with complete loss of medial joint space and marginal osteophyte formation in a varus knee. Operative note:: The patient was seen in the preoperative holding area. The left knee was marked to confirm the correct operative site. He was seen by anesthesia. He received Ancef 2 g IV prophylactic antibiotics within 1 hour of incision time. He also received a gram of IV TXA just prior to the incision and as we were closing to help minimize bleeding. He was brought back to the operating room. Spinal anesthesia performed without difficulty. IV sedation given throughout the case. A bump was placed underneath the left hip. Nonsterile tourniquet was applied to the left thigh. Left lower extremity was prepped and draped in the usual sterile fashion. Timeout performed to confirm left total knee arthroplasty for patient Toy Miguel. The left lower extremity was exsanguinated with an Esmarch. Tourniquet was inflated to 300 mmHg. With the knee flexed I made a midline incision with a 10 blade scalpel. Full-thickness medial and lateral flaps were elevated. A medial parapatellar arthrotomy was made with a fresh 10 blade scalpel. The patella was everted. Patellar fat pad and anterior femoral fat pads were excised with the Bovie. A medial release was performed with the Bovie electrocautery. Marginal osteophytes were removed with a rongeur. Z retractors were placed medially and laterally. [place] line was marked. Distal femur was then drilled and we placed the intramedullary distal femoral cutting guide set at a 5 degree valgus cut. This cut was made with oscillating saw removing approximately a centimeter of bone from the distal femur. Distal femur was then sized to a size 5 set at 3 degrees of external rotation. The 4-in-1 cutting guide was then pinned in place. We made the anterior and posterior cuts and the chamfer cuts. We then turned our attention to the tibia. We placed a PCL retractor and medial and lateral Hohmann retractors. Using the extramedullary tibial cutting guide we excised 3 to 5 mm of bone from the low medial side and a centimeter from the high lateral side with the oscillating saw. Cut bone was then removed. We excised medial and lateral menisci and posterior osteophytes. We then checked flexion and extension gaps. With the 10 mm block we achieved full extension and flexion with excellent alignment. The tibia was sized to a size 4 tibial tray centered off the medial third of the tibial tubercle. This was pinned in place and pins were impacted. We then placed the size 5 trial femur. We made the box cut with the reamer and punch. We then trialed with the 10 mm poly. With these trial components in place we achieved full extension and flexion with excellent alignment and stable throughout. We then made the patellar cut. Patella sized to 24 mm in thickness so we made a 9 mm patellar cut. The 32 dri
--- NOTE | 2023-08-29 11:03 | PC.NURSE ---
Pt. on floor vss.
--- NOTE | 2023-08-29 11:50 | EXP.ACUTE.PN ---
Subjective *Date: 08/29/23 *Time: 11:50 Interval history: Consulted by Dr. Kimball to see patient after left total knee replacement this morning. Patient is doing well, has no complaints. Medical Exam Vital signs and Labs for Last 24 Hours: Vital Signs Temp Pulse Resp BP Pulse Ox O2 Del Method 08/29/23 11:00 Room Air 08/29/23 10:55 96.0 F L 68 17 121/64 90 L Room Air 08/29/23 10:45 97.2 F L 65 14 123/56 L 98 Room Air 08/29/23 10:38 97.2 F L 64 16 108/60 L 100 Room Air 08/29/23 10:28 97.2 F L 68 16 118/80 100 Room Air 08/29/23 10:18 97.2 F L 72 14 104/56 L 100 Room Air 08/29/23 10:08 97.2 F L 80 16 110/56 L 98 Room Air 08/29/23 09:58 97.2 F L 84 14 110/56 L 93 L Room Air 08/29/23 09:48 97.2 F L 86 13 105/58 L 94 L Room Air 08/29/23 09:38 97.2 F L 84 14 102/55 L 94 L Room Air 08/29/23 09:28 97.2 F L 89 16 101/53 L 93 L Room Air 08/29/23 06:20 97.6 F 102 H 18 134/75 95 Room Air Intake and Output 08/28/23 08/29/23 08/29/23 23:59 07:59 15:59 Other: Weight 206 lb 3 oz Patient Weight 08/29/23 23:59 Weight 206 lb 3 oz I & O for Labs for Last 24 Hours: Intake & Output 08/26/23 08/27/23 08/28/23 08/29/23 23:59 23:59 23:59 23:59 Weight 206 lb 3 oz Constitutional: Present no acute distress Respiratory: Present normal respiratory effort Cardiac: Present Reg Rate and Rhythm Assessment and Plan *Assessment and plan (1) Osteoarthritis: Status: Acute Qualifiers: Osteoarthritis location: foot Osteoarthritis type: primary Laterality: bilateral Qualified Code(s): M19.071 - Primary osteoarthritis, right ankle and foot; M19.072 - Primary osteoarthritis, left ankle and foot Category: Medical Code(s): M19.90 - Unspecified osteoarthritis, unspecified site (2) Status post total left knee replacement: Status: Acute Category: Surgical Code(s): Z96.652 - Presence of left artificial knee joint (3) Hypertension: Status: Acute Qualifiers: Hypertension type: primary hypertension Qualified Code(s): I10 - Essential (primary) hypertension Category: Medical Code(s): I10 - Essential (primary) hypertension Plan POD #0, doing well, continue routine post op care.
--- NOTE | 2023-08-29 12:21 | PC.NURSE ---
Spoke to surgery and they stated Trancxamic acid 2 doses given.
--- NOTE | 2023-08-29 12:25 | EXP.ANES.I ---
[facility] Anesthesia Record Part I Anesthesia Record I Intake, IV Amount: 1,200 Hydration: Adequate Estimated blood loss (mL): 100 Urine output (mL): 0 Blood Products used (#): none Blood Pressure: 101/53 SaO2: 93 Pulse Rate: 89 Airway Patency: Patent Respiratory Rate: 16 Temperature: 97.2 F Patient is:: Awake (Talking) and Stable Stable to PACU at:: 09:33
--- NOTE | 2023-08-29 13:42 | XR_ITS ---
FINAL REPORT CLINICAL HISTORY: Status post left knee replacement, surgery done today. COMPARISON: 06/21/2023 FINDINGS: Left knee Two views were obtained. There is no acute fracture or dislocation. There is interval placement of a left total knee prosthesis. Gas is seen throughout the soft tissues consistent with recent surgery. IMPRESSION: Postsurgical changes as above. Reviewed, Interpreted and Dictated by Jesús Clarke MD Transcribed by Danielle Dick Authenticated and [facility]
--- NOTE | 2023-08-29 13:59 | HMH.OTEV ---
OT Inpatient Evaluation Rehab OT IP Evaluation Start: 08/29/23 09:57 Freq: ONCE Status: Active Protocol: Document 08/29/23 13:55 [facility] (Rec: 08/29/23 13:59 [facility] [id number]) Rehab OT IP Assessment Subjective History Pt oriented x 4 on arrival. Pt agreeable to engage in therapy evaluation. Pt admitted today following a left TKA. Prior to surgery, pt was independent with all ADLs and IADLs. 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 Pt also still drives. Normally, pt does not require any type of AE during functional transfers. Subjective I still can't really feel my foot. Objective Patient Orientation Person,Place,Birthday,Month Right Upper Extremity Gross ROM WFL Left Upper Extremity Gross ROM WFL Bed Mobility bed mobility-scooting,bed mobility - supine/sit Assist Level Contact Guard/Hand Hold Transfer Training Sit/Stand Transfer Assist Level Contact Guard/Hand Hold Rehab OT IP prob,goals,plan Problems Date of Evaluation: 08/29/23 OT IP Problems Bed Mobility,Transfers,Balance ,Self care,Safety Rehab Potential Rehab Potential Good Equipment Needs Assistive Devices Rolling / Wheeled Walker Plan OT intervention Plan Bed Mobility,Transfers,Balance ,Self care,Safety,Therapeutic Exercise OT Plan Frequency BID Duration LOS Discharge Goals Bed Mobility Ability Standby Assistance Sit to Stand Chair Transfer Ability Supervision/Stand by Chair Transfer Ability Supervision/Stand by Chair Transfer Technique Sit to/from Ambulatory Chair Transfer Assistive Devices Rolling Walker Feeding Ability Assist with Tray Set Up Lower Body Dressing Ability Minimal Assistance Upper Body Dressing Ability Contact Guard Bathing Ability Minimal Assistance Performing Toilet Hygiene Ability Minimal Assistance Overall Commode/Toilet Transfer Ability Minimal Assistance Commode/Toilet Transfer Technique Sit to/from Ambulatory Oral Care Assist Minimal Assistance Decrease in Endurance No Discharge Plan OT Discharge Plan Pt will continue to be seen
--- NOTE | 2023-08-29 17:06 | PC.NURSE ---
Oxycodone order is 1-2 tablets.
--- NOTE | 2023-08-29 18:24 | PC.NURSE ---
Milly paged about pt's pain.
[2023-08-30] VITALS (7 sets, daily range): BP systolic 123–154; BP diastolic 56–83; PULSE 65–113; RESP 14–20; TEMP 36.2–38.9; O2SAT 92–98; BMI 29.3
[2023-08-30 06:24] LABS: Basophils # 0.1 K/mm3 (0-0.2); Basophils % 0.6 % (0.1-2.0); Eosinophils # 0.1 K/mm3 (0.0-0.4); Eosinophils % 0.8 % (0.1-12.0); Hematocrit 41.9 % (42.0-52.0); Hemoglobin 13.9 g/dL (14.1-18.0); Lymphocytes # 2.4 K/mm3 (0.7-4.5); Lymphocytes % 25.2 % (10-50); Mean Corpuscular HGB Conc 33.1 g/dL (31.8-35.4); Mean Corpuscular Hemoglobin 31.4 pg (27.0-31.2); Mean Platelet Volume 7.8 fl (7.4-10.4); Monocytes # 0.8 K/mm3 (0.1-1.0); Neutrophils # 6.1 K/mm3 (1.8-7.8); Neutrophils % 65.4 % (37.0-80.0); Platelet Count 287 K/mm3 (142-424); Red Blood Count 4.42 M/mm3 (4.60-6.20); Red Cell Distribution Width 13.4 % (11.5-17.5); White Blood Count 9.4 K/mm3 (4.8-10.8)
[2023-08-30 06:26] LABS: Anion Gap 14.8 mEq/L (5-15); Blood Urea Nitrogen 20 mg/dl (9-20); Calcium 8.3 mg/dl (8.4-10.2); Carbon Dioxide 24 mmol/L (22.0-30.0); Chloride 104 mmol/L (98-107); Creatinine Clearance Estimated 76 mL/min (50-200); Estimated Glomerular Filt Rate 60 ml/min (>60); GFR (African American) 73 ML/MIN (>60); Glucose 102 mg/dl (74-100); Potassium 3.8 mmoL/L (3.5-5.1); Sodium 139 mmol/L (136-145)
--- NOTE | 2023-08-30 08:29 | HMH.PHAINT1 ---
Pharmacy Intervention Comments: Med reconciliation completed using external fill history. Called [facility] for maintenance meds which did not show up with anirudh
--- NOTE | 2023-08-30 08:44 | EXP.ACUTE.PN ---
Subjective *Date: 08/30/23 *Time: 08:44 Interval history: Patient reports having a lot of pain in his left knee/leg overnight. He was given Diluadid this morning and feels much better. He did have fever overnight as well. Medical Exam Vital signs and Labs for Last 24 Hours: Vital Signs Temp Pulse Pulse Resp BP BP Pulse Ox 08/30/23 07:55 98.5 F 94 H 18 154/74 H 93 L 08/30/23 07:01 08/30/23 06:58 100.9 F H 08/30/23 05:00 08/30/23 06:29 101.0 F H 08/30/23 05:48 102.0 F H 08/30/23 04:00 100.7 F H 94 H 20 143/75 H 08/30/23 03:00 08/30/23 00:00 100.3 F H 08/30/23 01:00 08/29/23 23:00 08/29/23 21:00 08/30/23 00:00 98.7 F 113 H 20 151/83 H 92 L 08/29/23 23:35 110 H 08/29/23 21:40 100.3 F H 117 H 20 140/66 08/29/23 20:00 98.7 F 113 H 19 163/85 H 95 08/29/23 17:51 08/29/23 17:35 98.7 F 95 H 16 136/82 98 08/29/23 15:35 98.7 F 95 H 16 135/97 H 98 08/29/23 17:00 08/29/23 14:35 98.7 F 94 H 16 156/98 H 97 08/29/23 14:18 08/29/23 13:35 99.8 F H 85 16 128/75 97 08/29/23 12:35 99.8 F H 80 16 115/59 L 94 L 08/29/23 12:05 99.8 F H 85 16 128/71 94 L 08/29/23 12:46 08/29/23 11:35 99.9 F H 66 16 120/66 96 08/29/23 11:20 66 16 115/66 95 08/29/23 11:05 64 16 118/64 93 L 08/29/23 10:50 65 16 121/64 93 L 08/29/23 11:49 97 08/29/23 11:00 08/29/23 10:55 96.0 F L 68 17 121/64 90 L 08/29/23 10:45 97.2 F L 65 14 123/56 L 98 08/29/23 10:38 97.2 F L 64 16 108/60 L 100 08/29/23 10:28 97.2 F L 68 16 118/80 100 08/29/23 10:18 97.2 F L 72 14 104/56 L 100 08/29/23 10:08 97.2 F L 80 16 110/56 L 98 08/29/23 09:58 97.2 F L 84 14 110/56 L 93 L 08/29/23 09:48 97.2 F L 86 13 105/58 L 94 L 08/29/23 09:38 97.2 F L 84 14 102/55 L 94 L 08/29/23 09:28 97.2 F L 89 16 101/53 L 93 L 08/29/23 12:27 97.2 F L 89 16 101/53 L O2 Del Method O2 Flow Rate 08/30/23 07:55 Room Air 08/30/23 07:01 Room Air 08/30/23 06:58 08/30/23 05:00 Room Air 08/30/23 06:29 08/30/23 05:48 08/30/23 04:00 Room Air 93 08/30/23 03:00 Room Air 08/30/23 00:00 Room Air 08/30/23 01:00 Room Air 08/29/23 23:00 Room Air 08/29/23 21:00 Room Air 08/30/23 00:00 Room Air 08/29/23 23:35 Room Air 08/29/23 21:40 Room Air 08/29/23 20:00 Room Air 08/29/23 17:51 Room Air 98 08/29/23 17:35 Room Air 08/29/23 15:35 Room Air 08/29/23 17:00 Room Air 08/29/23 14:35 Room Air 08/29/23 14:18 Room Air 08/29/23 13:35 Room Air 08/29/23 12:35 Room Air 08/29/23 12:05 Room Air 08/29/23 12:46 Room Air 08/29/23 11:35 Room Air 08/29/23 11:20 Room Air 08/29/23 11:05 Room Air 08/29/23 10:50 Room Air 08/29/23 11:49 Room Air 08/29/23 11:00 Room Air 08/29/23 10:55 Room Air 08/29/23 10:45 Room Air 08/29/23 10:38 Room Air 08/29/23 10:28 Room Air 08/29/23 10:18 Room Air 08/29/23 10:08 Room Air 08/29/23 09:58 Room Air 08/29/23 09:48 Room Air 08/29/23 09:38 Room Air 08/29/23 09:28 Room Air 08/29/23 12:27 Intake and Output 08/29/23 08/30/23 08/30/23 23:59 07:59 15:59 Intake Total 360 / 1800 7 / 2127 Output Total 0 / 0 200 / 200 Balance 360 / 1800 7 / 1927 Intake: Intake, Oral Amount 360 / 600 710 / 710 Intake, Total IV Amount 1417 / 1417 0.9 % Sodium Chloride 1000ML 1, 1417 / 1417 000 ml @ 75 mls/hr IV .[id number] [facility] Rx#:[id number] Output: Output, Urine Amount 0 / 0 200 / 200 Other: Number of Unmeasured Voids 1 1 Number of Bowel Movements 1 Weight 205 lb 3.2 oz Patient Weight 08/30/23 23:59 Weight 205 lb 3.2 oz Laboratory Results - last 24 hr 08/30/23 05:18: WBC 9.4, RBC 4.42 L, Hgb 13.9 L, Hct 41.9 L, MCV 95.0 H, MCH 31.4 H, M
--- NOTE | 2023-08-30 10:34 | HMH.PTEV ---
Physical Therapy Evaluation Rehab PT IP Evaluation Start: 08/29/23 09:57 Freq: ONCE Status: Active Protocol: Document 08/30/23 10:30 [facility] (Rec: 08/30/23 10:34 [facility] [id number]) Subjective/History History History 68 yowm adm to [facility] S/P L TKA. He reports he is generally independent with all mobility at baseline, lives with , 2-3 steps to enter the home, Subjective Subjective Pt reports mild pain this am in the L knee, agrees to mobility assessment. New diagnosis of cancer in past 12 No months? Rehab PT IP Eval Objective Appearance Patient Behavior Appropriate Patient Orientation Person,Place,Time Difficulty following instructions none Speech Pattern Clear Ambulation Patient Able to Ambulate Yes Ambulation Observation IP General Gait Pattern Observation Antalgic Gait,Decrease Stride Lngth (L) Ambulation Distance (feet) 20 Ambulation Assistive Device Rolling Walker Ambulation Ability Supervision/Stand by Balance Ability to Arise Able, uses arms to help Sitting Balance Steady, safe Standing Balance Steady, wide stance Dynamic Sitting Balance Ability Good Dynamic Standing Balance Ability Good Transfers Bed Transfer Ability Supervision/Stand by Chair Transfer Ability Supervision/Stand by Sit to Stand Bed Transfer Ability Supervision/Stand by Sit to Stand Chair Transfer Ability Supervision/Stand by Rehab PT IP prob,goals,plan Problems Date of Evaluation: 08/30/23 PT IP Problems Bed Mobility,Transfers,Gait Rehab Potential Rehab Potential Good Plan PT Intervention Plan Bed Mobility,Transfers,Gait, Therapeutic Exercise PT Plan Frequency BID Duration LOS Discharge Goals Bed Transfer Ability Independent Sit to Stand Chair Transfer Ability Independent Ambulation Assistive Device Rolling Walker Ambulation Distance (feet) 30 Discharge Plan PT Discharge Plan Pt is appropriate to return home once medically stable for d/c. Eval Complexity Eval Charge Codes 47905 - High Complexity PHYSICIAN CERTIFICATION: I certify the specified therapy services for Toy Miguel are required, authorized, and reviewed every 30 days.
--- NOTE | 2023-08-30 10:39 | P.PNANES_ITS ---
[facility] Anesthesia Record Part II Anesthesia Record Part II Discharge Time: 10:45 Destination: Second Floor PACU nurse assessment reviewed?: Yes Patient Condition:: Good Anesthesia Complications:: None Swallowing reflex intact?: Yes Airway Patency: Patent Cyanosis?: No Blood Pressure: 123/56 SaO2: 98 Respiratory Rate: 14 Pulse Rate: 65 Temperature: 97.2 F Mental Status: Alert & Oriented Pain level:: 0 Nausea and/or vomitting:: None Intake, IV Amount: 0 Hydration: Adequate
--- NOTE | 2023-08-31 16:32 | CARE MANAGER ---
Patient states he is doing well. He still is having swelling, but he is icing it. He is aware of follow up appointmnets and picked up his medication.
--- NOTE | 2023-09-04 13:28 | EXP.DC.SUM ---
General Admission date:: 08/29/23 Discharge date: 08/30/23 HPI HPI HPI: Patient was admitted after a left total knee replacement by Dr. Kimball. Hospital Course Hospital Course Hospital Course: The patient did well following surgery. By 08/30/2023 he was having a lot of pain. He was given some Dilaudid and felt much better. He ran a fever during the night, but it normalized by the next morning. It was felt this was likely due to anesthesia. By the afternoon, he was feeling much better and was stable to be discharged home. He will follow-up with Dr. Kimball. Exam Data for Last 24 hours Vital signs and Labs for Last 24 Hours: Temp Pulse Resp BP Pulse Ox O2 Del Method O2 Flow Rate 98.5 F 94 H 14 154/74 H 93 L Room Air 93 08/30/23 07:55 08/30/23 07:55 08/30/23 10:39 08/30/23 07:55 08/30/23 07:55 08/30/23 13:00 08/30/23 04:00 Microbiology Reports for the Last 24 Hours: Microbiology 08/30/23 08:31 Blood Blood Culture - Preliminary Narrative: Constitutional: Present no acute distress Respiratory: Present normal respiratory effort Cardiac: Present Reg Rate and Rhythm Results Data Completed and Pending Labs on day of discharge: Preliminary micro results at discharge 08/30/23 08:31 Blood Culture - Preliminary Blood DS: Diagnosis Discharge Diagnosis (1) Hypertension: Status: Acute Code(s): I10 - Essential (primary) hypertension Qualifiers: Hypertension type: primary hypertension Qualified Code(s): I10 - Essential (primary) hypertension (2) Status post total left knee replacement: Status: Acute Code(s): Z96.652 - Presence of left artificial knee joint (3) Fever: Status: Resolved Code(s): R50.9 - Fever, unspecified Meds Home Medications and Allergies Home Medications Medication Instructions Recorded Confirmed Type lisinopril 20 mg tablet 20 mg PO DAILY High blood pressure 04/22/21 08/29/23 History tramadol 50 mg tablet 100 mg PO TIDP PRN Pain 04/22/21 08/30/23 History chlorthalidone 25 mg tablet 12.5 mg PO DAILY Kidney stones 03/22/23 08/30/23 History tamsulosin 0.4 mg capsule 0.4 mg PO DAILY Prostate 03/22/23 08/29/23 History aspirin 325 mg tablet 325 mg PO .QD #20 tabs 08/29/23 08/29/23 Rx oxycodone 5 mg tablet 5 mg PO Q4H PRN pain #40 tabs 08/29/23 08/29/23 Rx celecoxib 100 mg capsule (Celebrex) 100 mg PO DAILY Pain 08/30/23 08/30/23 History pravastatin 40 mg tablet 40 mg PO DAILY High Cholesterol 08/30/23 08/30/23 History New Prescriptions to Start Prescriptions: aspirin 325 mg tablet oxycodone 5 mg tablet Allergies Allergy/AdvReac Type Severity Reaction Status Date / Time No Known Drug Allergies AdvReac Unknown Verified 08/29/23 06:16 Discharge Plan Disposition Patient Disposition: Home, Self-Care Follow up Plan Follow up with: Gareth Garay MD [Primary Care Provider] - 09/05/23 11:00 am Jd Kimball MD [Physician] - 09/20/23 1:30 pm (physical therapy 08/31 at 10:00 with Rigoberto Garcia) Prescriptions/Medication Reconciliation: New aspirin 325 mg tablet 325 mg PO .QD Qty: 20 0RF Rx Instructions: Take daily with breakfast for 3 weeks for DVT prophylaxis oxycodone 5 mg tablet 5 mg PO Q4H PRN (Reason: pain) Qty: 40 0RF Continued chlorthalidone 25 mg tablet 12.5 mg PO DAILY tamsulosin 0.4 mg capsule 0.4 mg PO DAILY lisinopril 20 mg tablet 20 mg PO DAILY pravastatin 40 mg Tablet 40 mg PO DAILY celecoxib [Celebrex] 100 mg Capsule 100 mg PO DAILY Held tramadol 50 mg tablet 100 mg PO TIDP PRN (Reason: Pain) Hold Instructions: Resume on 04/06/23. Patient to hold while he is taking Oxycodone post surgery Problem Reconciliation Problems Reviewed?: Yes Patient Discharge Instructions Patient Instructions: DI for Knee Replacement, DI for Surgical Site Infection Providers Primary Care Provider: Gladys Garay
== END 2023-08-30 14:45 | disposition home or self-care (01) ==
LOC: 2ND 10:43
PROVIDERS: Orthopaedic Surgery; Admitting Provider Family Medicine; PCP Family Medicine; Visit Provider Family Medicine
PROC: (CPT 27447; principal; 2023-08-29 07:30)
DX: I10 Essential (primary) hypertension; M17.12 Unilateral primary osteoarthritis, left knee; E78.5 Hyperlipidemia, unspecified; Z87.891 Personal history of nicotine dependence; M25.562 Pain in left knee; Z79.899 Other long term (current) drug therapy
CPT/HCPCS: 27447; 36415; 73560; 80048; 85025; 87040; 87086; 93005; 96374; 97163; 97166; 97530; 97535; C1713; C1776; G0378; J2405

== ENCOUNTER → 2023-09-20 08:42 | Outpatient (CLI) | payer MEDICARE, SELFPAY ==
--- NOTE | 2023-09-20 08:46 | XR_ITS ---
FINAL REPORT CLINICAL HISTORY: lt knee pain COMPARISON: None FINDINGS: Three views of the left knee reveal no evidence of fracture or dislocation. Previous knee arthroplasty. The bony alignment is normal. The joint spaces are preserved. There is no evidence of joint effusion. There are soft tissue calcifications of the knee. IMPRESSION: No acute abnormality identified. Reviewed, Interpreted and Dictated by Anton Navarro III, MD Transcribed by Rayna Mason Authenticated and [facility]
== END ==
LOC: RAD 08:43
PROVIDERS: PCP Family Medicine; Visit Provider Orthopaedic Surgery
DX: Z96.652 Presence of left artificial knee joint (principal); M25.562 Pain in left knee
CPT/HCPCS: 73562

== ENCOUNTER 2023-10-27 09:00 | Outpatient (RCR) | payer MEDICARE, SELFPAY ==
--- NOTE | 2023-08-31 12:32 | HMH.PTOPEV ---
PT Outpatient Evaluation Rehab PT Outpatient Evaluation Start: 08/31/23 10:03 Freq: Status: Active Protocol: Document 08/31/23 10:03 [facility] (Rec: 08/31/23 11:04 [facility] [id number]) E-signed By Rigoberto Ramirez, PT Outpatient Therapy Subjective History Subjective History Pt. is a 68 year old male who presents to [facility] Outpatient Physical Therapy Services in [place] for the initial evaluation this date(08/31/23) w/ c/o acute and constant LLE knee post-surgical P!, edema, and stiffness S/P LLE knee TKA on 08/29/23. Pt. reports spending the night in the Hospital after surgery secondary to the amount of P! he was in, states, the pain eased off that next morning. Pt. reports sleep was somewhat better last night(). Pt. reports ambulating w/ FWW and rollator , states icing the knee multiple times throughout the day yesterday. Pt. RTMD(PCP) 09/05/23, RTMD(Surgeon) . Current medications include Aspirin, Oxycodone, Tamsulosin, Pravastatin, Celebrex, Chlorthalidone, and lisinopril. PMH includes S/P BUE shldr. 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 New diagnosis of cancer in past 12 No months? Chief Complaint Pain,Spasms,Stiff,Swelling, Gives out/Unstable,Paresthesia ,Weakness Symptom Type Ache,Sharp,Dull,Stabbing, Burning,Shooting Symptoms Relieved By Rest/Positioning,Ice, Prescription Meds,Elevation Symptoms Aggravated By Sitting,Standing,Bending/ Stooping,Physical Activity, Twisting,Walking,Lifting Prior Functional Limitations None Current Functional Limitations Lifting,Housework,Dressing, Driving,Sleeping,Standing, Sitting,Squatting,Recreation Activity,Walking,Stairs, Balance,Bending/Stooping Symptom Description Constant and Continuous, Activity Dependent Level of pain today (0-10) 3 Pain scale - at its best (0-10) 2 Pain scale - at its worst (0-10) 9 Hip/Knee Eval Gait Observation General Gait Pattern Observation Antalgic Gait,Decrease Weight Bear (L),Decrease Stride Lngth (R) Assistive Device Assistive Devices Rolling / Wheeled Walker Palpation Tenderness left Knee Palpation Finding Tenderness,Spasm,Muscle Guarding Knee Palpation Overall Comment grade 4 +TTP medial jt. line, HS tendons, pes anserine MMT Hip Flexion Strength Grade 3 Fair Hip Abduction Strength Grade 3+ Fair+ Hip Adduction Strength Grade 3+ Fair+ Hip Extension Strength Grade 4- Good- Gluteus [place] Strength Grade 4- Good- Hip External Rotation Strength Grade 3 Fair Hip Internal Rotation Strength Grade 3 Fair Knee Extension Strength Grade 3 Fair Knee Flexion Strength Grade 3 Fair Knee Extensors Muscle Tone Description Severe Hypertonicity Knee Flexors Muscle Tone Description Severe Hypertonicity Hip Extensors Muscle Tone Description Severe Hypertonicity Hip Flexors Muscle Tone Description Severe Hypertonicity ROM Knee Extension Active Range of Motion ( +8 degrees) Knee Extension Passive Range of Motion ( +7 degrees) Knee Flexion Active Range of Motion ( 55 degrees) Knee Flexion Passive Range of Motion ( 58 degrees) Knee ROM Limitations Soft Tissue Tightness,Muscle Weakness,Muscle Tone,Pain Effusion joint effusion knee exam standard left 5cm Proximal Circumference Measure (cm) 38 5cm Distal Circumference Measure (cm) 47 Outpatient Therapy Assessment Impairments Problems/Impairmments Palpation Tenderness,Impaired Range of Motion,Impaired Strength,Impaired Endurance, Impaired Transfers,Impaired Gait Pattern,Impaired Walking, Impaired Standing,Impaired Sitting,Impaired Dressing, Impaired Shower/Bathing, Impaired Stair Climbing, Impaired Incline Stepping, Impaired Stepping on Uneven Surface,Impaired Squatting, Impaired Bending,Impaired Recreational Activities, Impaired Balance,Increased Edema,Subjective C/O Pain, Impaired Self Care/Self Management Prognosis Rehab Potential Good Comment w/ HEP compliancy Clinical Impression Consistent with Diagnosis Yes Consistent with S/P LLE TKA Short Term Goals Number of Weeks 2 Decreased Palpation Tenderness Yes: grade 1-2 +TTP to TTP assessment above Decrease Subjective C/O Pain Yes: worse:/10 Patient to be Ind w/ HEP Yes Zigzagger Goals Number of Weeks 6-8 Decreased Palpation Tenderness Yes: grade 1 +TTP to TTP assessment above Increase Range of Motion Yes: 0-120 LLE knee AROM, WFL PROM Increase Strength Yes: 4+ to 5/5 LLE knee MMT scores grossly Improve Gait Pattern without Assistive Yes Device Increase Ability to Walk Yes Increase Ability to Stand Yes Increase Ability to Sit Yes Improve Ability to Dress Self Yes Improve Ability to Shower/Bathe Self Yes Improve Ability to Climb Stairs Yes Improve LEFI Score Yes Decrease Edema Yes Decrease Subjective C/O Pain Yes: worse:1-11/25 Improve Self Care/Self Management Yes Patient to be Ind w/ Advanced HEP Yes Outpatient Therapy Plan of Care Treatment Plan May Include Therapeutic Exercise Including Home Yes Exercise Program Manual Therapy Techniques Yes Neuromuscular Re-education Yes Therapeutic Activities to Return to Yes Previous Functional/Work Level Gait Training Yes ADL/Self Care Education Yes Thermal Modalities Yes Electrical Stimulation Yes Ultrasound/Phonophoresis Yes Iontophoresis Yes Vasopneumatic Compression Pump Yes Massage Yes Eval/Re-Eval Yes Frequency Times per week 2-3 Duration Number of Weeks 6-8 Addendums This patient is a candidate for social No or vocational rehab? Patient/Guardian verbally acknowledges Yes understanding of treatment program and consents to further treatment? Patient/Guardian verbally acknowledges Yes understanding of diagnosis, prognosis and goals for treatment? Eval Complexity PT Charges 13711 - Low Complexity Shoulder/Elbow Eval Shoulder Objective Measurements Elbow Objective Measurements PHYSICIAN CERTIFICATION: I certify the specified therapy services for Toy Miguel are required, authorized, and reviewed every 30 days.
== END 2023-12-04 13:50 | disposition home or self-care (01) ==
LOC: PT 09:00
PROVIDERS: PCP Family Medicine; Visit Provider Orthopaedic Surgery
DX: M25.562 Pain in left knee (principal); Z96.652 Presence of left artificial knee joint
CPT/HCPCS: 97010; 97014; 97110; 97140; 97163; 97164; 97530; G0283

== ENCOUNTER 2023-11-22 08:50 | Outpatient (CLI) | payer MEDICARE, SELFPAY ==
--- NOTE | 2023-11-22 08:56 | XR_ITS ---
FINAL REPORT CLINICAL HISTORY: left knee replacement COMPARISON: 09/20/2023 FINDINGS: Three views of the left knee reveal no evidence of fracture or dislocation. There are postoperative changes from knee arthroplasty. The hardware is intact. The bony alignment is normal. There is no evidence of joint effusion. No localized soft tissue abnormality is seen. IMPRESSION: Postoperative changes without acute abnormality identified. Reviewed, Interpreted and Dictated by Anton Navarro III, MD Transcribed by Rayna Mason Authenticated and [facility]
--- NOTE | 2023-11-22 09:23 | XR_ITS ---
FINAL REPORT CLINICAL HISTORY: rt knee pain..hx of replacement COMPARISON: 06/21/2023 FINDINGS: Three views of the right knee reveal no evidence of fracture or dislocation. Prior knee arthroplasty with intact hardware. The bony alignment is normal. There is a moderate joint effusion. No localized soft tissue abnormality is identified. IMPRESSION: Moderate joint effusion without acute bony abnormality. Reviewed, Interpreted and Dictated by Anton Navarro III, MD Transcribed by Rayna Mason Authenticated and [facility]
== END 2023-11-22 23:59 ==
LOC: RAD 08:52
PROVIDERS: PCP Family Medicine; Visit Provider Orthopaedic Surgery
DX: M25.561 Pain in right knee; M25.562 Pain in left knee; Z96.653 Presence of artificial knee joint, bilateral
CPT/HCPCS: 73562

== ENCOUNTER 2024-02-14 09:53 | Outpatient (CLI) | payer MEDICARE, SELFPAY ==
--- NOTE | 2024-02-14 09:58 | XR_ITS ---
FINAL REPORT CLINICAL HISTORY: rt heel pain FINDINGS: Right calcaneus TWO VIEW FINDINGS: Two views show no evidence of an acute, displaced fracture or dislocation of the visualized bony architecture. Calcaneocuboid and subtalar joints are unremarkable. Moderate plantar and posterior calcaneal spurring is present. There is no erosion. IMPRESSION: Calcaneal spurring Authenticated and [facility]
== END 2024-02-14 23:59 | disposition home or self-care (01) ==
LOC: RAD 09:54
PROVIDERS: PCP Family Medicine; Visit Provider Family Medicine
DX: M79.671 Pain in right foot (principal)
CPT/HCPCS: 73650